=== PATIENT | female | born 1995 | race Hispanic/Latino ===

== ENCOUNTER 2018-08-09 10:14 | Emergency (ER) | payer BC ==
[2018-08-09 10:24] VITALS: BMI 25.0
[2018-08-09 10:26] VITALS: O2SAT 100
[2018-08-09] MEDS ORDERED: Sodium Chloride 0.9% 1,000 ML IV STA (11:12)
--- NOTE | 2018-08-09 12:41 | ED PDOC ---
HPI: Headache Time Seen by Provider: 08/09/18 11:12 Chief Complaint (Nursing): Headache Chief Complaint (Provider): headache/photophobia History Per: Patient (23 y/o female with h/o migraine here after head injury on thursday x 2. Notes she struck head against desk in afternoon and subsequently was struck in head by child with toy. No LOC. NOtes headache behind right eye persistent associated with photophobia/nausea and feeling foggy. Concerned for concussion.) Past Medical History Reviewed: Historical Data, Nursing Documentation, Vital Signs Vital Signs: Last Vital Signs Temp 98.1 F 08/09/18 10:24 Pulse 61 08/09/18 10:24 Resp 16 08/09/18 10:24 BP 104/68 08/09/18 10:24 Pulse Ox 100 08/09/18 10:24 - Family History Family History: States: No Known Family Hx - Home Medications Home Medications: Ambulatory Orders Medication Instructions Recorded Ondansetron ODT [Zofran ODT] 4 mg PO Q8 PRN #2 odt 08/09/18 - Allergies Allergies/Adverse Reactions: Allergies Allergy/AdvReac Type Severity Reaction Status Date / Time No Known Allergies Allergy Verified 08/09/18 10:38 Review of Systems ROS Statement: Except As Marked, All Systems Reviewed And Found Negative Physical Exam - Reviewed Nursing Documentation Reviewed: Yes Vital Signs Reviewed: Yes - Physical Exam Appears: Positive for: Well, Non-toxic, No Acute Distress Head Exam: Positive for: ATRAUMATIC, NORMAL INSPECTION, NORMOCEPHALIC Skin: Positive for: Normal Color, Warm, DRY Eye Exam: Positive for: EOMI, Normal appearance, PERRL ENT: Positive for: Normal ENT Inspection Neck: Positive for: Normal, Painless ROM Cardiovascular/Chest: Positive for: Regular Rate, Rhythm Respiratory: Positive for: CNT, Normal Breath Sounds Gastrointestinal/Abdominal: Positive for: Normal Exam, Soft Back: Positive for: Normal Inspection Extremity: Positive for: Normal ROM Neurologic/Psych: Positive for: Alert, Oriented - Laboratory Results Urine POC: Negative - ECG O2 Sat by Pulse Oximetry: 100 - Progress ED Course And Treament: reglan 10 mg iv NS 1 liter wide open Disposition - Clinical Impression Clinical Impression: Migraine, Head injury - Patient ED Disposition Is Patient to be Admitted: No - Disposition Referrals: Moe Childs MD [Staff Provider] - [facility] S[facility] Burgess [Outside] Disposition: Routine/Home Disposition Time: 12:42 Condition: FAIR Prescriptions: Ondansetron ODT [Zofran ODT] 4 mg PO Q8 PRN #2 odt PRN Reason: Nausea/Vomiting Instructions: Minor Head Injury, Migraine Headache (DC) Forms: [facility] ED School/Work Excuse
[2018-08-09 13:03] VITALS: BP 110/61; PULSE 68; RESP 18; TEMP 97.9
== END 2018-08-09 13:04 | disposition home or self-care (01) ==
LOC: H.ER 10:14
DX: G43.909 Migraine, unspecified, not intractable, without status migrainosus (principal); S09.90XA Unspecified injury of head, initial encounter; W22.03XA Walked into furniture, initial encounter
CPT/HCPCS: 81025; 96374; 99285; J2765; J7030